=== PATIENT | male | born 1995 | race Caucasian/White ===

== ENCOUNTER 2019-08-02 00:52 | Emergency (ER) | payer BC, MEDICAID ==
[~2019-08-02] VITALS: Ht 182.9 cm; Wt 134.3 kg
[2019-08-02 00:56] VITALS: BP 133/103
--- NOTE | 2019-08-02 01:07 | NUR ---
PT AMBULATED TO BED #7
--- NOTE | 2019-08-02 01:08 | NUR ---
24 Y/O M PRESENTS TO ED WITH C/ORAPID HEART RATE X15 MINS. PT REPORTS THAT WAS SEATED ON THE COUCH WHEN HE FELT HIS HEART RATE STARTING TO INCREASE. PT HAD CAFFEFINE AT 1300. ELEVATED HR NOT SUSTAINED ABOVE 110 ON BEDSIDE MONITOR. RADIAL PULSE NOTED AT 105, APICAL PULSE AT 108. REGULAR RATE AND RHYTHM NOTED. PT DENIES CHEST PAIN, DRUGS AND ALCOHOL. BEDRAIL X1 UP. MOTHER AT BEDSIDE. WILL CONTINUE TO MONITOR.
--- NOTE | 2019-08-02 01:16 | NUR ---
Dr. Mas examining patient.
[2019-08-02 01:51] LABS: ANION GAP 15.9 (8-16); CARBON DIOXIDE 26.8 mmol/L (21-32); CREATININE 1.2 mg/dL (0.7-1.3); POTASSIUM 3.7 mmol/L (3.5-5.1)
[2019-08-02 02:06] LABS: BARBITURATE, URINE NEG. ng/ml (NEG <=200); BENZODIAZEPINE, URINE NEG. ng/mL (NEG <=200); CANNABINOID, URINE NEG. ng/mL (NEG <=50); COCAINE, URINE NEG. ng/mL (NEG <=300); OPIATE, URINE NEG. ng/mL (NEG <=2000); PHENCYCLIDINE SCREEN,URINE NEG. ng/mL (NEG <=25)
[2019-08-02 02:09] LABS: FREE T4 (FREE THYROXINE) 1.08 ng/dL (0.76-1.46)
--- NOTE | 2019-08-02 02:30 | NUR ---
PT SEATED UPRIGHT IN BED. RESTING HR AT 101. BEDRAIL X1UP. WILL CONTINUE TO MONITOR.
[2019-08-02 02:55] VITALS: BP 118/67
--- NOTE | 2019-08-02 02:55 | NUR ---
Patient discharged with v/s stable. Written and verbal after care instructions given and explained. Patient alert, oriented and verbalized understanding of instructions. Ambulatory with steady gait. All questions addressed prior to discharge. ID band removed. Patient advised to follow up with PMD.
== END 2019-08-02 02:55 | disposition home or self-care (01) ==
LOC: MED 00:52
DX: R00.2 Palpitations (principal)
CPT/HCPCS: 36415; 71045; 80048; 80305; 84439; 84443; 85379; 93005; 99284; Q0092